=== PATIENT | male | born 1950 | race Two or more races ===

== ENCOUNTER 2019-02-18 07:08 | Emergency (ER) | payer BC, OTHER ==
[~2019-02-18] VITALS: Ht 167.6 cm; Wt 81.6 kg
[2019-02-18 08:20] LABS: Basophils # (auto) 0.1 uL; Basophils % (auto) 0.9 % (0.0-2.0); Eosinophils # (auto) 0.4 uL; Eosinophils % (auto) 5.5 % (0.0-7.0); Hematocrit 43.3 % (41.0-53.0); Hemoglobin 14.8 g/dL (13.5-17.5); Lymphocytes # (auto) 1.8 uL; Lymphocytes % (auto) 25.3 % (10.0-50.0); Mean Corpuscular Hemoglobin 33.7 pg (28.0-32.0); Mean Corpuscular Volume 99.1 fL (80.0-100.0); Monocytes # (auto) 0.6 uL; Monocytes % (auto) 8.4 % (0.0-12.0); Neutrophils # (auto) 4.2 uL; Neutrophils % (auto) 59.9 % (37.0-80.0); Nucleated Red Blood Cells % 0.1 %; Platelet Count (auto) 284 10^3/uL (140-450); Red Blood Cells 4.37 10^6/uL (4.5-5.90); Red Cell Distribution Width 14.7 % (11.8-14.3); White Blood Cell 6.9 10^3/uL (4.4-10.8)
[2019-02-18 08:35] LABS: Albumin 3.8 g/dL (3.4-5.0); Calcium 8.2 mg/dL (8.5-10.1)
[2019-02-18 08:39] LABS: Urine Bacteria NONE SEEN /hpf (None Seen); Urine Blood Negative /uL (Negative); Urine Specific Gravity 1.006 (1.001-1.035); Urine WBC 1 /hpf (0 - 3)
[2019-02-18 08:46] LABS: Potassium 4.2 mmol/L (3.5-5.1)
[2019-02-18 08:49] LABS: BUN/Creatinine Ratio 15.6; Bilirubin, Total 0.4 mg/dL (0.2-1.0); Total Protein 7.9 g/dL (6.4-8.2)
[2019-02-18] MEDS ORDERED: SODIUM CHLORIDE 0.9% 1,000 ML IV ONE ×3 (09:46→12:30)
[2019-02-18] MEDS ORDERED: LORazepam 2MG/ML-1ML VIAL IV ONE (10:00)
[2019-02-18] MEDS ORDERED: THIAMINE 100mg/ml INJ (200mg/2ml VIAL) IV ONE (12:15)
[2019-02-18] MEDS ORDERED: GABAPENTIN 100 MG CAP PO ONE (12:30)
[2019-02-18] MEDS ORDERED: LISINOPRIL 10 MG TAB PO ONE (12:30)
[2019-02-18] MEDS ORDERED: amLODIPine BESYLATE 5 MG TAB PO ONE (12:30)
[2019-02-18 13:37] VITALS: BP 130/95
== END 2019-02-18 13:39 | disposition home or self-care (01) ==
LOC: ER 07:08 → EDBD 07:08 → ER 13:39
DX: R00.2 Palpitations (principal); E03.9 Hypothyroidism, unspecified; I10 Essential (primary) hypertension
CPT/HCPCS: 36415; 71045; 80053; 81001; 83735; 84443; 84484; 85025; 93005; 96374; 96375; 99284; J2060; J3411; J7030

== ENCOUNTER 2021-10-23 17:30 | Emergency (ER) | payer OTHER ==
[~2021-10-23] VITALS: Ht 167.6 cm; Wt 95.3 kg
[2021-10-23] MEDS ORDERED: IOHEXOL 350 MG/ML 100ML IJ ONE (18:39)
[2021-10-23 19:17] LABS: INR 0.97 (0.9-1.15); Partial Thromboplastin Time 25.4 sec (23.6-33.0)
[2021-10-23 19:19] LABS: Basophils # (auto) 0 10 ^3/uL (0-0.2); Basophils % (auto) 0.5 % (0.0-2.0); Eosinophils # (auto) 0.1 10 ^3/uL (0-0.8); Eosinophils % (auto) 2.1 % (0.0-7.0); Hematocrit 46.5 % (41.0-53.0); Hemoglobin 15.7 g/dL (13.5-17.5); Lymphocytes # (auto) 1.2 10 ^3/uL (0.4-5.4); Lymphocytes % (auto) 19.4 % (10.0-50.0); Mean Corpuscular Hemoglobin 32.5 pg (28.0-32.0); Mean Corpuscular Hgb Conc. 33.7 g/dL (32.0-36.0); Mean Corpuscular Volume 96.4 fL (80.0-100.0); Monocytes # (auto) 0.4 10 ^3/uL (0-1.3); Monocytes % (auto) 6.6 % (0.0-12.0); Neutrophils # (auto) 4.4 10 ^3/uL (1.6-8.6); Neutrophils % (auto) 71.4 % (37.0-80.0); Nucleated Red Blood Cells % 0.1 %; Red Blood Cells 4.82 10^6/uL (4.5-5.90); Red Cell Distribution Width 13.7 % (11.8-14.3); White Blood Cell 6.2 10^3/uL (4.4-10.8)
[2021-10-23] MEDS ORDERED: ASPirin 325 MG TAB PO ONE (19:30)
[2021-10-23 19:34] LABS: Albumin 3.9 g/dL (3.4-5.0); Blood Alcohol < 3.0 mg/dL (0-5); Magnesium 2.4 mg/dL (1.6-2.6); Potassium 4.1 mmol/L (3.5-5.1)
[2021-10-23 19:37] LABS: BUN/Creatinine Ratio 14.8; Bilirubin, Total 0.3 mg/dL (0.2-1.0); Total Protein 7.5 g/dL (6.4-8.2)
[2021-10-23] MEDS ORDERED: ASPirin 300 MG RECTAL SUPP PR ONE (20:30)
[2021-10-23 20:50] VITALS: BP 166/106
== END 2021-10-23 21:02 | disposition short-term general hospital (02) ==
LOC: ER 17:30
DX: I67.81 Acute cerebrovascular insufficiency (principal); R47.01 Aphasia; R74.8 Abnormal levels of other serum enzymes; M10.9 Gout, unspecified; I10 Essential (primary) hypertension
CPT/HCPCS: 36415; 70450; 70496; 70498; 80053; 80320; 83735; 84443; 84484; 85025; 85610; 85730; 93005; 99291; Q9967

== ENCOUNTER 2021-12-15 10:33 | Emergency (ER) | payer OTHER ==
[~2021-12-15] VITALS: Ht 167.6 cm; Wt 75.3 kg
[2021-12-15] MEDS ORDERED: SODIUM CHLORIDE 0.9% 1,000 ML IV ONE (11:45)
[2021-12-15 11:46] LABS: Basophils # (auto) 0 10 ^3/uL (0-0.2); Basophils % (auto) 0.2 % (0.0-2.0); Eosinophils # (auto) 0.2 10 ^3/uL (0-0.8); Eosinophils % (auto) 1.6 % (0.0-7.0); Hematocrit 35.6 % (41.0-53.0); Hemoglobin 12.3 g/dL (13.5-17.5); Lymphocytes # (auto) 0.7 10 ^3/uL (0.4-5.4); Lymphocytes % (auto) 7.2 % (10.0-50.0); Mean Corpuscular Hemoglobin 32.2 pg (28.0-32.0); Mean Corpuscular Hgb Conc. 34.7 g/dL (32.0-36.0); Monocytes # (auto) 0.8 10 ^3/uL (0-1.3); Monocytes % (auto) 8.3 % (0.0-12.0); Neutrophils # (auto) 8.1 10 ^3/uL (1.6-8.6); Neutrophils % (auto) 82.7 % (37.0-80.0); Red Blood Cells 3.83 10^6/uL (4.5-5.90); Red Cell Distribution Width 13.5 % (11.8-14.3); White Blood Cell 9.8 10^3/uL (4.4-10.8)
[2021-12-15 12:07] LABS: Calcium 9.2 mg/dL (8.5-10.1); Potassium 3.5 mmol/L (3.5-5.1)
[2021-12-15 12:09] LABS: Albumin 2.8 g/dL (3.4-5.0)
[2021-12-15 12:12] LABS: Total Protein 6.9 g/dL (6.4-8.2)
[2021-12-15 12:37] LABS: Urine Bacteria FEW /hpf (None Seen); Urine Blood Negative /uL (Negative); Urine Specific Gravity 1.009 (1.001-1.035); Urine WBC 11 /hpf (0 - 3)
[2021-12-15 12:49] LABS: Magnesium 2.3 mg/dL (1.6-2.6); Uric Acid 6.9 mg/dL (3.5-7.2)
[2021-12-15 14:44] VITALS: BP 117/70
== END 2021-12-15 15:32 | disposition home or self-care (01) ==
LOC: ER 10:33
DX: G81.91 Hemiplegia, unspecified affecting right dominant side (principal); R47.01 Aphasia; E03.9 Hypothyroidism, unspecified; E79.0 Hyperuricemia without signs of inflammatory arthritis and tophaceous disease; I12.9 Hypertensive chronic kidney disease with stage 1 through stage 4 chronic kidney disease, or unspecified chronic kidney disease; N18.31 Chronic kidney disease, stage 3a; Z86.73 Personal history of transient ischemic attack (TIA), and cerebral infarction without residual deficits
CPT/HCPCS: 36415; 71045; 80053; 81001; 83735; 84443; 84550; 85025; 93005; 96360; 96361; 99285; J7030